=== PATIENT | male | born 1960 | race Caucasian/White ===

== ENCOUNTER 2017-12-10 12:38 | Emergency (ER) | payer OTHER ==
[2017-12-10 12:50] VITALS: BP 147/98; PULSE 91; RESP 16; TEMP 99.3; O2SAT 94
[2017-12-10] MEDS ORDERED: KETOROLAC 30 MG/1 ML SDV IM ONE ×2 (12:58)
--- NOTE | 2017-12-10 13:00 | EDPHY ---
H & P Stated Complaint: fell onto left shoulder Time Seen by Provider: 12/10/17 12:49 HPI/ROS: CHIEF COMPLAINT: Left shoulder pain HISTORY OF PRESENT ILLNESS: Patient is 57-year-old man who comes to the emergency department complaining of left shoulder and proximal humerus pain. He slipped on the ice and fell laterally onto his shoulder about half an hour ago. He did not outstretch his hand or arm. He denies neck pain, elbow pain or wrist pain. He denies injuries to other parts of his body. He did not hit his head or lose consciousness. He did not faint. REVIEW OF SYSTEMS: Constitutional: denies: chills, fever, recent illness, recent injury EENTM: denies: blurred vision, double vision, nose congestion Respiratory: denies: cough, shortness of breath Cardiac: denies: chest pain, irregular heart rate, lightheadedness, palpitations Gastrointestinal/Abdominal: denies: abdominal pain, diarrhea, nausea, vomiting, blood streaked stools Genitourinary: denies: dysuria, frequency, hematuria, pain Musculoskeletal: See HPI Skin: denies: lesions, rash, jaundice, bruising Neurological: denies: headache, numbness, paresthesia, tingling, dizziness, weakness Hematologic/Lymphatic: denies: blood clots, easy bleeding, easy bruising Immunologic/allergic: denies: HIV/AIDS, transplant EXAM: GENERAL: Well-appearing, well-nourished and in no acute distress. HEAD: Atraumatic, normocephalic. EYES: Pupils equal round and reactive to light, extraocular movements intact, sclera anicteric, conjunctiva are normal. ENT: TMs normal, nares patent, oropharynx clear without exudates. Moist mucous membranes. NECK: Normal range of motion, supple without lymphadenopathy or JVD. LUNGS: Breath sounds clear to auscultation bilaterally and equal. No wheezes rales or rhonchi. HEART: Regular rate and rhythm without murmurs, rubs or gallops. ABDOMEN: Soft, nontender, normoactive bowel sounds. No guarding, no rebound. No masses appreciated. BACK: No CVA tenderness, no spinal tenderness, step-offs or deformities EXTREMITIES: Left shoulder pain, no deformity. Pain with elevation. No pain to elbow or clavicle or neck. NEUROLOGICAL: Cranial nerves II through XII grossly intact. Normal speech, normal gait. 5/5 strength, normal movement in all extremities, normal sensation PSYCH: Normal mood, normal affect. SKIN: Warm, dry, normal turgor, no visible rashes or lesions. Source: Patient Exam Limitations: No limitations - Personal History Current Tetanus Diphtheria and Acellular Pertussis (TDAP): Yes - Medical/Surgical History Hx Asthma: No Hx Chronic Respiratory Disease: No Hx Diabetes: No Hx Cardiac Disease: No Hx Renal Disease: No Hx Cirrhosis: No Hx Alcoholism: No Hx HIV/AIDS: No Hx Splenectomy or Spleen Trauma: No Other PMH: HTN, depression, right hip fx with pins - Family History Significant Family History: No pertinent family hx - Social History Smoking Status: Never smoked Alcohol Use: Sober Drug Use: None Constitutional: Initial Vital Signs Temperature (C) 37.4 C 12/10/17 12:48 Heart Rate 91 12/10/17 12:48 Respiratory Rate 16 12/10/17 12:48 Blood Pressure 147/98 H 12/10/17 12:48 O2 Sat (%) 94 12/10/17 12:48 O2 Delivery Mode Room Air Allergies/Adverse Reactions: No Known Allergies Allergy (Unverified 02/15/16 17:47) Home Medications: Medication Instructions Recorded Escitalopram Oxalate 12/10/17 Lisinopril 12/10/17 oxyCODONE/APAP 5/325 [Percocet 1 - 2 tab PO Q4H PRN #20 tab 12/10/17 5/325 (*)] traZODone 12/10/17 Medical Decision Making - Diagnostics Imaging Results: Imaging Impressions Shoulder X-Ray 12/10/17 12:58 Impression: 1. Oblique comminuted nondisplaced left humeral head and neck fracture extending through the greater tuberosity. 2. Left sixth rib fracture of indeterminate age. Imaging: I viewed and interpreted images myself Procedures: Procedure: Splint placement. A sling was applied. After application of the splint I returned and re- examined the patient. The splint was adequately immobilizing the joint and distal to the splint the patient's circulation and sensation was intact. ED Course/Re-evaluation: We discussed patient's x-rays. He was placed in a sling and will follow up with Orthopedics. I will prescribe him pain medication. We discussed indications for returning. Differential Diagnosis: Partial list of the Differential diagnosis considered include but were not limited to; proximal humerus fracture, AC joint separation, clavicle head fracture and although unlikely based on the history and physical exam, I also considered dislocation cervical spine injury. I discussed these differential diagnoses and the plan with the patient as well as the usual and expected course. The patient understands that the diagnosis is provisional and that in medicine we are not always correct and that further workup is often warranted. Usual and customary warnings were given. All of the patient's questions were answered. The patient was instructed to return to the emergency department should the symptoms at all worsen or return, otherwise to followup with the physician as we discussed. - Data Points Medications Given: Discontinued Medications Ketorolac Tromethamine (Toradol) 60 mg IM EDNOW ONE Stop: 12/10/17 12:59 Last Admin: 12/10/17 13:10 Dose: 60 mg Ketorolac Tromethamine (Toradol) 60 mg IM EDNOW ONE Stop: 12/10/17 12:59 Last Admin: 12/10/17 13:12 Dose: Not Given Departure - Departure Disposition: Home, Routine, Self-Care Clinical Impression: Fracture of proximal end of left humerus Qualifiers: Encounter type: initial encounter Fracture type: closed Fracture morphology: unspecified fracture morphology Qualified Code(s): S42.202A - Unspecified fracture of upper end of left humerus, initial encounter for closed fracture Condition: Fair Instructions: Proximal Humerus Fracture (ED) Referrals: Vishal Smith DO [Primary Care Provider] - As per Instructions Lubna Escalera MD [Medical Doctor] - 2-3 days, call for appt. Prescriptions: oxyCODONE/APAP 5/325 [Percocet 5/325 (*)] 1 - 2 tab PO Q4H PRN #20 tab PRN Reason: Pain, Severe
== END 2017-12-10 13:44 | disposition home or self-care (01) ==
LOC: CED 12:38
DX: S42.202A Unspecified fracture of upper end of left humerus, initial encounter for closed fracture (principal); I10 Essential (primary) hypertension; W01.0XXA Fall on same level from slipping, tripping and stumbling without subsequent striking against object, initial encounter
CPT/HCPCS: 73030-PO; A4565; J1885